=== PATIENT | female | born 1940 | race Caucasian/White ===

== ENCOUNTER 2023-06-11 06:22 | Inpatient (IN) | payer MEDICARE, BC ==
[2023-06-07 11:01] LABS: Basophils # (auto) 0.1 10 ^3/uL (0-0.2); Basophils % (auto) 1.1 % (0.0-2.0); Eosinophils # (auto) 0 10 ^3/uL (0-0.8); Eosinophils % (auto) 0.6 % (0.0-7.0); Hematocrit 42.1 % (36.0-46.0); Hemoglobin 13.7 g/dL (12.2-16.2); Lymphocytes # (auto) 1.2 10 ^3/uL (0.4-5.4); Lymphocytes % (auto) 25.8 % (10.0-50.0); Mean Corpuscular Hemoglobin 30.1 pg (28.0-32.0); Mean Corpuscular Hgb Conc. 32.5 g/dL (32.0-36.0); Mean Corpuscular Volume 92.8 fL (80.0-100.0); Monocytes # (auto) 0.3 10 ^3/uL (0-1.3); Monocytes % (auto) 6.6 % (0.0-12.0); Neutrophils # (auto) 3.1 10 ^3/uL (1.6-8.6); Neutrophils % (auto) 65.9 % (37.0-80.0); Nucleated Red Blood Cells % 0.1 %; Red Blood Cells 4.53 10^6/uL (4.0-5.20); Red Cell Distribution Width 14.9 % (11.8-14.3); White Blood Cell 4.7 10^3/uL (4.4-10.8)
[2023-06-07 11:21] LABS: INR 1.03 (0.9-1.15); Partial Thromboplastin Time 28.7 SEC (24.5-34.5); Prothrombin Time 10.8 sec (9.3-11.8)
[2023-06-07 11:23] LABS: Alanine Aminotransferase 19 U/L (7-40); Alkaline Phosphatase 103 U/L (46-116); Anion Gap 4 (5-15); BUN/Creatinine Ratio 26.6 (10.0-20.0); Blood Urea Nitrogen 21 mg/dL (9-23); Calcium 10.1 mg/dL (8.5-10.1); Carbon Dioxide 28 mmol/L (20-30); Chloride 106 mmol/L (98-107); Glucose 93 mg/dL (74-106); Potassium 4.2 mmol/L (3.5-5.1); Sodium 138 mmol/L (136-145)
[2023-06-07 11:24] LABS: Albumin 4.5 g/dL (3.2-4.8); Aspartate Aminotransferase 17 U/L (13-40); Urine Bacteria NONE SEEN /hpf (None Seen); Urine Blood Negative /uL (Negative); Urine Clarity Clear (Clear); Urine Color Yellow (Yellow); Urine Protein, UAD Negative (Negative); Urine Specific Gravity 1.016 (1.001-1.035); Urine Urobilinogen Normal (Negative); Urine WBC <1 /hpf (0 - 5)
[2023-06-07 11:25] LABS: Bilirubin, Total 0.5 mg/dL (0.2-1.0); Total Protein 7.3 g/dL (5.7-8.2)
[~2023-06-11] VITALS: Ht 162.6 cm; Wt 84.8 kg
[~2023-06-11 06:22] MED LIST: ALPR0.25 PO; ASCO500T11 PO; ASPI1TAB20 PO; CALCTAB78 PO; CHOL100047 PO; CITA10TA8 PO; ESTR1TAB5 PO; GLUC1CAP12 PO; LEVO112T2 PO; MULT-1153 PO; MULT-688 PO; OMEG-28 PO; RED600TA PO; SIMV-268 PO; TURM500C3 OR; [UNRECOGNIZED DRUG - CODE] PO
[2023-06-11] MEDS: ceFAZolin 2 GM/D5W100ml 100 ML IV ONE (06:29)
[2023-06-11] MEDS: TRANEXAMIC ACID 20 ML ONE (06:59)
[2023-06-11] MEDS: CELECOXIB 100 MG CAP PO ONE (07:00)
[2023-06-11] MEDS: PREGABALIN CAPSULE 75 MG CAP PO ONE (07:00)
[2023-06-11] MEDS: ACETAMINOPHEN IV 1000 MG/100ML (10MG/ML) IV ONE (07:00)
[2023-06-11] MEDS: ROCURONIUM 10MG/ML 10ML VIAL IV ONE (07:12)
[2023-06-11] MEDS: SUCCINYLCHOLINE CHLORIDE 20 MG/ML 10ML VIAL IV ONE (07:12)
[2023-06-11] MEDS: TETRACAINE 1% INJ 2 ML VIAL IJ ONE (07:12)
[2023-06-11] MEDS ORDERED: KETAMINE 50mg/ML 1ml syringe ONE (07:18)
[2023-06-11] MEDS ORDERED: fentaNYL CITRATE 100 MCG/2 ML VL ONE (07:18)
[2023-06-11] MEDS ORDERED: ONDANSETRON HCL 4 MG/2 ML VIAL ONE (07:19)
[2023-06-11] MEDS ORDERED: SODIUM CHLORIDE LOCK 10 ML ONE (07:19)
[2023-06-11] MEDS ORDERED: PROPOFOL 10 MG/ML 20 ML IV ONE (07:19)
[2023-06-11] MEDS ORDERED: MIDAZOLAM HCL 2MG/2ML 2ml VIAL (1mg/ml) ONE (07:19)
[2023-06-11] MEDS ORDERED: METOCLOPRAMIDE HCL 5MG/ml INJ 2ml VIAL IV PRN (08:15)
[2023-06-11] MEDS ORDERED: HYDROmorphone HCL 2 MG/ML VL/or syr IV PRN ×2 (08:15)
[2023-06-11] MEDS ORDERED: MORPHINE SULFATE INJ 2 MG/ml SYRG IV PRN ×2 (08:15→09:15)
[2023-06-11] MEDS: KETOROLAC TROMETH 30 MG/ML 1ML VIAL ONE (08:20)
[2023-06-11] MEDS: MORPHINE SULF PF 5 MG/10 ML VIAL ONE (08:20)
[2023-06-11] MEDS: BUPIVACAINE 0.25% INJ 50ML VIAL ONE (08:20)
[2023-06-11] MEDS: VANCOMYCIN HCL 1000 MG VL ONE (08:35)
[2023-06-11 09:03] VITALS: O2SAT 99
[2023-06-11] MEDS ORDERED: NITROGLYCERIN 0.4 MG SL TAB SL PRN (09:15)
[2023-06-11] MEDS ORDERED: ceFAZolin 1GM/50ML 50 ML IV SCH (09:15)
[2023-06-11] MEDS: LACTATED RINGER'S 1,000 ML IV SCH (09:15)
[2023-06-11] MEDS: CITALOPRAM HYDROBR 20 MG TAB PO SCH (10:00)
[2023-06-11 13:00] VITALS: BP 91/58; PULSE 60; RESP 14; TEMP 97.5; O2SAT 94
[2023-06-11] MEDS: SIMVASTATIN 10 MG PO SCH (13:13)
[2023-06-11] MEDS: ceFAZolin 1GM/50ML 50 ML IV SCH (14:10)
[2023-06-11] MEDS: ESTRADIOL 1 MG TAB PO SCH (14:40)
[2023-06-11] MEDS: DOCUSATE SOD 100 MG CAP PO SCH (14:40)
[2023-06-11] MEDS: MULTIPLE VITAMIN TAB PO SCH (14:41)
[2023-06-11] MEDS: GABAPENTIN 100 MG CAP PO SCH (14:42)
[2023-06-11] MEDS: PANTOPRAZOLE 40 MG TAB PO SCH (14:42)
[2023-06-11] MEDS: CHOLECALCIFEROL (VITD3) 1,000UNIT=25mCg TAB PO SCH (14:43)
[2023-06-11] MEDS: LEVOTHYROXINE SODIUM 112 MCG TAB PO SCH (14:43)
[2023-06-11] MEDS: SODIUM CHLOR 0.9% PF (SALINE LOCK) 10ML VIAL/SYR IV SCH (14:43)
[2023-06-11] MEDS: ASCORBIC ACID 500 MG TAB PO SCH (14:43)
[2023-06-11] MEDS: ALPRAZolam 0.25 MG TAB PO SCH (14:43)
[2023-06-11] MEDS: ENOXAPARIN SOD 40 MG/0.4 ML SYRINGE SC SCH (14:43)
[2023-06-11] MEDS: ONDANSETRON HCL 4 MG/2 ML VIAL IV PRN (16:16)
[2023-06-11 17:00] VITALS: BP 129/67; PULSE 71; RESP 18; TEMP 97.4; O2SAT 95
[2023-06-11 19:35] VITALS: PULSE 78
[2023-06-11 20:12] VITALS: PULSE 65; O2SAT 97
[2023-06-11 22:00] VITALS: BP 97/56; PULSE 65; RESP 17; TEMP 98.2; O2SAT 97
[2023-06-12] VITALS (7 sets, daily range): BP systolic 101–140; BP diastolic 46–78; PULSE 65–93; RESP 17–19; TEMP 36.7; O2SAT 92–100
[2023-06-12] MEDS: HYDROmorphone HCL 2 MG/ML VL/or syr IV PRN (00:23)
[2023-06-12] MEDS: OXYCODONE W/ ACETAMINOPHEN 5/325MG TABLET PO PRN (13:55)
[2023-06-13 05:00] VITALS: BP 154/60; PULSE 77; RESP 20; TEMP 97.8; O2SAT 93
[2023-06-13 08:00] VITALS: BP 144/65; PULSE 84; PULSE 87; RESP 18; TEMP 98.8; O2SAT 93
[2023-06-13 08:30] VITALS: BP 144/65; PULSE 87; RESP 18; TEMP 98.8; O2SAT 93
[2023-06-13] MEDS ORDERED: PERCOT PO (10:34)
[2023-06-13 11:20] VITALS: TEMP 37.1
[2023-06-13 13:00] VITALS: BP 135/54; PULSE 88; RESP 19; TEMP 98.4; O2SAT 93
== END 2023-06-13 14:13 | disposition home health service (06) | DRG 470 ==
LOC: SUR 06:22 → TELE 09:20 → TELE-EAST 13:00
PROVIDERS: ADMIT Orthopaedic Surgery Adult Reconstructive Orthopaedic Surgery; ATTEND Family Medicine
PROC: 0SRD0J9 Replacement of Left Knee Joint with Synthetic Substitute, Cemented, Open Approach (ICD-10-PCS; principal; 2023-06-11 07:29)
DX: M17.12 Unilateral primary osteoarthritis, left knee (principal); E86.0 Dehydration; I48.91 Unspecified atrial fibrillation; Z80.41 Family history of malignant neoplasm of ovary; Z80.3 Family history of malignant neoplasm of breast
CPT/HCPCS: 36415; 73562; 80053; 81001; 85025; 85610; 85730; 86850; 86900; 86901; 87086; 97110; 97116; 97163; 97530; G0378; J0131; J0330; J1885; J2250; J2405; J2704; J3490